=== PATIENT | male | born 1940 | race Two or more races ===

== ENCOUNTER 2025-07-20 09:41 | Emergency (ER) | payer OTHER ==
[~2025-07-20] VITALS: Ht 182.9 cm; Wt 88.9 kg
[2025-07-20 10:08] VITALS: BP 140/82; O2SAT 98
[2025-07-20] MEDS ORDERED: COZAAR25 MG PO (10:13)
[2025-07-20] MEDS ORDERED: 0.9 % SODIUM CHLORIDE 500 ML IV SCH (11:15)
[2025-07-20] MEDS ORDERED: PANTOPRAZOLE SODIUM 40 MG/VIAL VIAL IV ONE (11:15)
[2025-07-20 11:20] LABS: BASO % 0.4 % (0.1-1.2); EOS # 0.05 (0.04-0.54); EOS % 0.5 % (0.7-7.0); LYMPH # 0.56 (1.18-3.74); LYMPH % 5.9 % (19.3-53.1); MEAN PLATELET VOLUME 10.10 fl (9.4-12.4); MONO # 0.60 (0.24-0.82); MONO % 6.3 % (4.7-12.5); NEUT # 8.29 (1.56-6.13); NEUT % 86.8 % (34.0-71.1); RED CELL DISTRIBUTION WIDTH 12.9 % (11.6-14.4)
[2025-07-20 11:43] LABS: INR 1.06
[2025-07-20 12:02] LABS: ALT/SGPT 22.0 U/L (12-78); AST/SGOT 18.0 U/L (15-37); BILIRUBIN TOTAL 1.05 mg/dL (0.3-1.2); BUN CREA RATIO 24.0 (7.0-25.0); CREATININE SERUM 1.16 mg/dL (0.70-1.30); GFR 59.7; GLOBULINA 3.5 G/DL (2.4-3.5); GLUCOSE FASTING 129.0 mg/dL (65-100); OSMOLALITY SERUM 294.0 MOSM/KG (275-295)
[2025-07-20 12:48] LABS: ob POSITIVE (NEGATIVE)
[2025-07-20] MEDS ORDERED: CIPRO500 MG PO (18:24)
[2025-07-20] MEDS ORDERED: PROTONIX40 MG PO (18:24)
[2025-07-20] MEDS ORDERED: METRONIDAZOLE500 MG PO (18:24)
[2025-07-20] MEDS ORDERED: INTESTINEX680 M2 PO (18:24)
[2025-07-20 18:37] LABS: URINE APPEARANCE Clear; URINE BILIRRUBIN Negative (NEGATIVE); URINE BLOOD Negative; URINE COLOR Yellow; URINE GLUCOSE Negative (NEGATIVE); URINE KETONE Trace (NEGATIVE); URINE LEUKOCYTE Negative; URINE NITRATE Negative; URINE PROTEIN Negative (NEGATIVE); URINE UROBILINOGEN 0.2 E.U./dl
[2025-07-20 18:43] LABS: URINE BACTERIA 5.9 uL (0.0-1933); URINE EPITHELIAL CELLS 2.6 uL (0.0-38.8); URINE RBC 30.6 uL (0.0-20.8); URINE WBC 5.9 uL (0.0-23.2)
[2025-07-20 18:52] LABS: URINE CAST 0.73 uL (0.0-1.40)
== END 2025-07-20 19:21 | disposition home or self-care (01) ==
LOC: ER 09:42
DX: K62.89 Other specified diseases of anus and rectum (principal); Z88.0 Allergy status to penicillin; I10 Essential (primary) hypertension
CPT/HCPCS: 36415; 74177; 96365; 96366; 99284; J3490; J7042; Q9965